=== PATIENT | male | born 1960 | race Caucasian/White ===

== ENCOUNTER 2017-03-29 10:26 | Inpatient (IN) | payer MEDICAID ==
[~2017-03-29] VITALS: Ht 175.3 cm; Wt 68.8 kg
--- NOTE | ~2017-03-29 | ECH ---
Transthoracic Echocardiography Report (TTE) Demographics Patient Name ANNETTE POLANCO Date of Study 03/31/2017 Patient Number [id number] Visit Number [id number] Date of 1960 Room Number 412 Accession Number [id number] Gender Male Age 56 year(s) Referring Marito Mackey Bilingual Branch Manager Danuta Hanks [facility] Physician MD Moe Lomax Physician Daniel Hargrove MD Dedicated Truck Driver Physician Angus Supervising Ordering Physician Moe Lomax MD/MARKP Nurse Stress Pool Player Conclusions Contractility Score Summary Normal Left Ventricular contractility was noted. Summary Technically difficult exam to perform due to patient position/restless. Apical imaged off axis, unable to comment on wall motion. The estimated left ventricular ejection fraction is 60-65%. Mild left ventricular hypertrophy. Diastolic assessment reveals Grade I diastolic dysfunction. Normal right ventricle structure and function. Prominent Chiari network seen in the right atrium. Recommendation The patient will be given the results of this study by the physician who ordered the exam. Procedure Type of Study TTE procedure:Echo Complete SF. Procedure Date Date: 03/31/2017 Start: 10:33 AM Technical Quality: Fair Indications:Hypotension and Pleural effusion. Additional Indications:hypoxia, prolonged QT Appropriate Use Criteria: 9 Height: 64 inches Weight: 198 pounds BSA: 1.95 m Rhythm: Within normal limits HR: 83 bpm BP: 105/66 mmHg M-Mode/2D Measurements LV Diastolic Dimension: 4.44 cm LV Systolic Dimension: 3.15 cm LV Septum Diastolic: 1.08 cm LV PW Diastolic: 1.2 cm AO Root Dimension: 3.08 cm Cardiac Output: 4.57 l/min LA Dimension: 3.43 cm Cardiac Index: 2.34 l/min*m RV Diastolic Dimension: 2.4 cm LVOT: 2.23 cm LVOT VTI: 14.09 cm LV Stroke volume: 55 ml LV Stroke volume index: 28.21 ml/m Doppler Measurements AV Peak Velocity: 1.52 m/s MV Peak E-Wave: 0.54 m/s AV Peak Gradient: 9.19 mmHg MV Peak A-Wave: 0.66 m/s AV Mean Gradient: 5.89 mmHg MV E/A Ratio: 0.82 LVOT Peak Velocity: 0.73 m/s AV Area (Continuity):1.51 cm RA Area: 17.27 cm Findings Left Ventricle The left ventricle is normal in size . Mild left ventricular hypertrophy. Diastolic assessment reveals Grade I diastolic dysfunction. Right Ventricle Normal right ventricle structure and function. Left Atrium Normal left atrial size. Right Atrium Normal right atrial size. Prominent Chiari network seen in the right atrium. Mitral Valve Normal mitral valve structure and function. Aortic Valve Normal aortic valve structure and function. Tricuspid Valve Normal tricuspid valve structure and function. Pulmonic Valve The pulmonic valve is not well visualized. Pericardial Effusion Epicardial fat pad noted. Miscellaneous Visualized portions of the aortic root and ascending aorta appear normal in size. Signature
--- NOTE | ~2017-03-29 | CO ---
ADMIT: 03/29/2017 RM/LOC: 412 [facility] MR#: [id number] [address] [address] ANNETTE POLANCO [address] [place] [address] Consultation SEX: M AGE: 56 : 1960 DATE OF CONSULTATION: 03/29/2017 ATTENDING PHYSICIAN: Monie Rosa CONSULTING PHYSICIAN: Fernandez Devi MD REASON FOR CONSULTATION: Metastatic cancer. HISTORY OF PRESENT ILLNESS: The patient is a 56-year-old male who presented to the [place] [facility] with some confusion and severe hypotension as well as pelvic discomfort. He was found to have such a low blood pressure that there was concern for sepsis and he was transferred to the [place] [facility]. In the process of his workup, he underwent a CT scan of the chest that showed a spiculated right upper lobe nodule with additional pulmonary nodules that were concerning for metastatic disease. He also had some mediastinal adenopathy. There was evidence of bony metastases. He subsequently underwent a lumbar spine CT scan to evaluate for the metastatic disease and this identified a very large sacral soft tissue mass, measuring up to 8.4 cm in size. Invading the ilium bone. The patient is not aware of any prior history of malignancy. Unfortunately, the patient has a closed head injury that occurred almost 2 years ago when he suffered a fall from a very significant height at work that resulted in about 6 to 12 months of rehabilitation. He was finally getting his life back to a normal baseline when this hospitalization occurs now. He does admit to fairly severe alcohol abuse. He came into the emergency room for this hospital stay intoxicated. He has been a smoker as well. He denies any significant drug use. Thus far, he has been placed on alcohol withdrawal precautions. He has been told about this concerned for malignancy and wants to be as aggressive as possible with working this up. PAST MEDICAL HISTORY: 1. Ongoing alcohol abuse. 2. History of closed head injury. 3. Seizure disorder. 4. Bipolar disorder. 5. Hypertension. 6. Depression. SOCIAL HISTORY: The patient is previously . He now lives with a girlfriend. His sister is his [id number] who lives by [place]. He smokes at least 1 pack per day. He has had a very significant alcohol abuse history that is dated at least 40 years. He continues to drink heavy up to this hospital stay. FAMILY HISTORY: He has colon cancer in his father, but no other hereditary malignancies. REVIEW OF SYSTEMS: See HPI. Otherwise, complete review of systems was obtained and is negative. ADMIT: 03/29/2017 RM/LOC: 412 [facility] MR#: [id number] [address] [place] [phone] ANNETTE POLANCO [address] [place] [address] Consultation SEX: M AGE: 56 : 1960 PHYSICAL EXAMINATION: VITAL SIGNS: Temp is 96, pulse is 94, respirations 16, blood pressure 130/89. GENERAL: The patient is in no acute distress. He provided me a good history. He was alert and oriented. HEENT: Mucous membranes are moist. No oral lesions are seen. Extraocular muscles are intact. Pupils are reactive and symmetrical. NECK: Without adenopathy or JVD. HEART: Regular rate and rhythm without murmur. LUNGS: Clear to auscultation bilaterally without any crackles or wheezes. ABDOMEN: Soft, nontender, and nondistended with positive bowel sounds throughout. No organomegaly is appreciated. EXTREMITIES: No edema, rashes, lesions, or adenopathy is seen.Q LABORATORY DATA: See HPI. IMPRESSION: 1. Lung and bone lesions, highly concerning for metastatic disease. 2. Acute alcohol intoxication. 3. Severe pelvic pain from this destructive mass. 4. Closed head injury. RECOMMENDATIONS: I talked with him today at length about the findings of his imaging studies. He does need this completion workup with a CT scan of his abdomen and needs to proceed with a biopsy of one of these suspicious lesions. We will try to get this arranged in the next couple of days. Once we know the results of the biopsy and the subtype of malignancy, then I will talk with him further about his treatment options. He wants to be aggressive with his care. This certainly looks like metastatic disease; it will not be a curable situation, but his prognosis and treatment options really are unknown until we have histology results. We did talk about a social situation at length as well and his alcohol abuse. We will continue to address these at future discussions. I appreciate this consultation. We will follow his progress. Fernandez Devi MD/ gianna JOB #: [id number] CC: Monie Rosa, Attending Physician Monie Rosa, Family Physician
--- NOTE | 2017-03-30 09:50 | ER ---
ADMIT: 03/29/2017 RM/LOC: 412 [facility] MR#: [id number] [address] [address] ANNETTE POLANCO [address] [place] [address] Emergency Room Report SEX: M AGE: 56 : 1960 DATE: 03/29/2017 ADDENDUM: A 56-year-old white male coming down from [place] after being seen there for back pain, may be cough, hypotension. He was put on sepsis pathway for his hypotension though he was on high blood pressure pills. He got about [address] At this time, re-exam shows that his lab is essentially negative with no lactate. We went ahead and did a CT scan of his chest and lower back because of his age as well as questionable other diagnosis other than pneumonia. He does not have pneumonia. He has metastatic lesions that seem to be coming from the lung. He also has mets to his sacrum and lumbar vertebra, I refer you to radiology report. He will come in through the hospitalist. Prior to arrival and transfer, he had already gotten fluid and antibiotics in case he had underlying infection. I do not believe that he has pneumonia at this time. He will be admitted. CONDITION DISCHARGE: Serious. Chandana Hernandez MD/ modl JOB #: [id number] CC: Monie Rosa MD, Attending Physician Monie Rosa MD, Family Physician
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
[2017-04-05] MEDS ORDERED: METOPROLOL SUCC25 MG PO (15:09)
[2017-04-05] MEDS ORDERED: KEPPRA1000 MG PO (15:09)
[2017-04-05] MEDS ORDERED: NAPROXEN500 MG PO (15:09)
[2017-04-05] MEDS ORDERED: SEROQUEL XR400 MG PO (15:10)
[2017-04-05] MEDS ORDERED: FOLVITE-DPS1 MG PO (15:10)
[2017-04-05] MEDS ORDERED: SERTRALINE HCL50 MG PO (15:10)
[2017-04-05] MEDS ORDERED: MAG-OX400 MG PO (15:11)
[2017-04-05] MEDS ORDERED: TESSALON PERLE100 M1 PO (15:11)
[2017-04-05] MEDS ORDERED: POTASSIUM40 MEQ/15 PO (15:11)
[2017-04-05] MEDS ORDERED: THERAPEUTIC MUL1 TAB PO (15:11)
[2017-04-05] MEDS ORDERED: VITAMIN B1100 MG PO (15:11)
[2017-04-05] MEDS ORDERED: PRILOSEC DPS20 MG PO (15:12)
[2017-04-05] MEDS ORDERED: OXY IR DPS5 MG PO (15:12)
[2017-04-05] MEDS ORDERED: TYLENOL DPS325 MG PO (15:12)
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
== END 2017-04-05 12:26 | disposition home or self-care (01) | DRG 987 ==
LOC: ER 10:26 → 4PCU 13:00
PROVIDERS: ADMIT Internal Medicine
PROC: HZ2ZZZZ Detoxification Services for Substance Abuse Treatment (ICD-10-PCS; 2017-03-29)
PROC: 0QB13ZX Excision of Sacrum, Percutaneous Approach, Diagnostic (ICD-10-PCS; principal; 2017-03-30)
PROC: 3E0234Z Introduction of Serum, Toxoid and Vaccine into Muscle, Percutaneous Approach (ICD-10-PCS; 2017-04-05)
DX: C34.90 Malignant neoplasm of unspecified part of unspecified bronchus or lung (principal); J96.01 Acute respiratory failure with hypoxia; C79.51 Secondary malignant neoplasm of bone; D69.59 Other secondary thrombocytopenia; C79.31 Secondary malignant neoplasm of brain; E44.0 Moderate protein-calorie malnutrition; I95.9 Hypotension, unspecified; E83.39 Other disorders of phosphorus metabolism; Z23 Encounter for immunization; I45.81 Long QT syndrome; R09.02 Hypoxemia; G40.909 Epilepsy, unspecified, not intractable, without status epilepticus; F31.9 Bipolar disorder, unspecified; I10 Essential (primary) hypertension; R63.4 Abnormal weight loss; F10.10 Alcohol abuse, uncomplicated; G89.29 Other chronic pain; M54.9 Dorsalgia, unspecified; F17.210 Nicotine dependence, cigarettes, uncomplicated; E87.6 Hypokalemia; F10.129 Alcohol abuse with intoxication, unspecified; F32.9 Major depressive disorder, single episode, unspecified; T39.1X1A Poisoning by 4-Aminophenol derivatives, accidental (unintentional), initial encounter; E83.52 Hypercalcemia; Z87.820 Personal history of traumatic brain injury